=== PATIENT | male | born 1965 | race Hispanic/Latino ===

== ENCOUNTER 2018-11-26 14:06 | Observation (INO) | payer OTHER ==
[~2018-11-26] VITALS: Ht 182.9 cm; Wt 123.8 kg
[2018-11-26] MEDS ORDERED: METOPROLOL TARTRATE INJ 1 MG/ML VIAL ONE ×2 (14:28→14:37)
[2018-11-26] MEDS ORDERED: METOPROLOL TARTRATE INJ 1 MG/ML VIAL IV ONE ×3 (15:00→15:45)
[2018-11-26] MEDS ORDERED: DILTIAZEM HCL 125 ML IV SCH (15:15)
[2018-11-26] MEDS ORDERED: ENOXAPARIN SODIUM INJ 100 MG/ML SYR SC SCH (15:15)
[2018-11-26] MEDS ORDERED: SODIUM CHLORIDE 0.9% 1000ML 1,000 ML ONE (15:25)
[2018-11-26] MEDS ORDERED: DILTIAZEM HCL VIAL 5 ML ONE (15:25)
[2018-11-26] MEDS ORDERED: DILTIAZEM HCL 5 MG/ML 5 ML VIAL IV STA ×2 (15:30→17:39)
[2018-11-26] MEDS ORDERED: MAGNESIUM/ALUMINUM/SIMETHICONE 30 ML UDC ONE (15:57)
[2018-11-26] MEDS ORDERED: SODIUM CHLORIDE 0.9% 500ML 500 ML IV ONE (16:00)
[2018-11-26] MEDS ORDERED: MAGNESIUM/ALUMINUM/SIMETHICONE 30 ML UDC PO ONE (16:00)
--- NOTE | 2018-11-26 16:29 | Diagnostic Imaging Report ---
EXAMINATION: CXR 1 VEW - HOPD INDICATION: Palpitations COMPARISON: None FINDINGS: LINES/TUBES:EKG leads overlie the chest. LUNGS:The lungs are well-inflated. No focal consolidation or pulmonary edema. PLEURA:No pleural effusion or pneumothorax. MEDIASTINUM:Heart size at the upper limits of normal. BONES/SOFT TISSUES:No acute osseous injury. ABDOMEN:No free air under the diaphragm. IMPRESSION: No focal pneumonia or pulmonary edema. Signed by: Kianna Valerio MD on 11/26/2018 4:25 PM
[2018-11-26] MEDS ORDERED: METOPROLOL TARTRATE 50 MG TAB ONE (16:40)
[2018-11-26] MEDS ORDERED: METOPROLOL TARTRATE 25 MG TAB PO ONE (16:45)
[2018-11-26] MEDS ORDERED: ONDANSETRON HCL INJ 2MG/ML 2ML 2 MG/ML VIAL IV PRN (17:00)
[2018-11-26] MEDS ORDERED: ASPIRIN 81 MG CHEW TAB PO ONE (17:00)
--- OUTSIDE RECORDS SUMMARY | 2018-11-26 17:11 | XMS REPORT ---
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 Allergies, Adverse Reactions, Alerts This patient has no known allergies or adverse reactions. Medications This patient has no known medications. Results Test Description Test Time Test Comments Text Results Atomic Results Result Comments CXR 1 [facility] 2018-11-26 16:24:00 [place] [address] Patient Name: TOPHER BLAS MR #: [id number] : 1965 Age/Sex: 53/M Req #: [id number] Adm Physician: Ordered by: LUZ MARINA VAUGHN MD Report #: [id number] Location: [facility] Room/Bed: Procedure: [id number] HOPD/CXR 1 [facility] Exam Date: 11/26/18 Exam Time: 1612 REPORT STATUS: Signed EXAMINATION: CXR 1 [facility] INDICATION: Pa lpitations COMPARISON: None FINDINGS: LINES/TUBES:EKG leads overlie the chest. LUNGS:The lungs are well-inflated. No focal consolidation or pulmonary edema. PLEURA:No pleural effusion or pneumothorax. MEDIASTINUM:Heart size at the upper limits of normal. BONES/SOFT TISSUES:No acute osseous injury. ABDOMEN:No free air under the diaphragm. IMPRESSION: No focal pneumonia or pulmonary edema. Signed by: Aldo Valerio MD on 11/26/2018 4:25 PM Dictated By: ALDO VALERIO MD [id number] Transcribed By: TEVIN on 11/26/18 1043 COPY TO: LUZ MARINA VAUGHN MD
--- NOTE | 2018-11-26 17:23 | NUR ---
PT RESTING, VITAL SIGNS STABLE PT AND FAMILY AWARE OF POC TO TRANSFER TO [facility], PT VOICES NO COMPLAINTS AT THIS TIME.
--- NOTE | 2018-11-26 17:25 | NUR ---
[facility] CALLED FOR TRANSPORT ETA 45 MINUTES
--- NOTE | 2018-11-26 18:22 | NUR ---
PT TRANSFERRED TO MAIN REPORT TO [facility] ALL QUESTIONS ANSWERED
--- NOTE | 2018-11-26 18:25 | NUR ---
PT TO THE FLOOR, VITALS WNL, PT DENUIES NEEDS AT THIS TIME.
[2018-11-26 18:35] VITALS: BP 117/90
[2018-11-26 20:37] VITALS: BP 123/90
[2018-11-26 20:37] LABS: CREATINE KINASE MB 0.8 ng/mL (0-5.0)
[2018-11-26 21:00] VITALS: BP 123/90
[2018-11-26 22:38] VITALS: BP 123/90
[2018-11-27 00:09] VITALS: BP 118/91
[2018-11-27] MEDS ORDERED: APIXABAN 5 MG TABLET PO SCH (03:00)
[2018-11-27 03:18] LABS: CREATINE KINASE MB 0.8 ng/mL (0-5.0)
[2018-11-27 04:33] VITALS: BP 129/81
[2018-11-27 05:42] LABS: BASOPHILS % 0.4 % (0.0-1.0); EOSINOPHILS # (AUTO) 0.3 (0.0-0.4); EOSINOPHILS % 3.6 % (0.0-6.0); HEMATOCRIT 46.3 % (38.2-49.6); HEMOGLOBIN 14.7 g/dL (14.0-18.0); LYMPHOCYTES # (AUTO) 1.9 (1.0-3.2); MEAN CORPUSCULAR HEMOGLOBIN 27.4 pg (28-32); MEAN CORPUSCULAR HGB CONC 31.7 g/dL (31-35); MEAN CORPUSCULAR VOLUME 86.2 fL (81-99); MONOCYTES # (AUTO) 0.7 (0.2-0.8); MONOCYTES % 8.6 % (4.4-11.3); NEUTROPHILS # (AUTO) 5.2 (2.1-6.9); PLATELET COUNT 252 x10e3/uL (140-360); RED BLOOD COUNT 5.37 x10e6/uL (4.3-5.7); RED CELL DISTRIBUTION WIDTH 13.7 % (11.7-14.4)
[2018-11-27 06:06] LABS: BLOOD UREA NITROGEN 14 mg/dL (7-26); BUN/CREATININE RATIO 17 (6-25); CALCIUM 8.8 mg/dL (8.4-10.2); CARBON DIOXIDE 21 mmol/L (22-29); CHLORIDE 106 mmol/L (98-107); CREATININE, SERUM 0.81 mg/dL (0.72-1.25); EST GLOMERULAR FILTRATION RATE > 60 ML/MIN (60-); GLUCOSE 103 mg/dL (74-118); MAGNESIUM 2.2 MG/DL (1.3-2.1); SODIUM 136 mmol/L (136-145)
[2018-11-27 06:10] LABS: CREATINE KINASE MB 0.8 ng/mL (0-5.0)
--- NOTE | 2018-11-27 06:28 | NUR ---
Patient HR above [address] Kajal MD ordered po metoprolol 25mg once and ordered to consult with Meryl riggs at his time.
--- NOTE | 2018-11-27 06:40 | NUR ---
Called Dr. Meryl riggs. Notified about his consult and patient's condition. MD ordered IV digoxin 0.5mg once at this time.
[2018-11-27] MEDS ORDERED: METOPROLOL TARTRATE 25 MG TAB PO ONE (06:45)
[2018-11-27] MEDS ORDERED: DIGOXIN INJ 0.25 MG/ML 2 ML AMP IV ONE (07:00)
[2018-11-27 07:23] VITALS: BP 148/99
--- NOTE | 2018-11-27 07:31 | NUR ---
Report given to oncoming nurse,walking round done.
[2018-11-27] MEDS ORDERED: METOPROLOL TARTRATE 25 MG TAB PO SCH ×2 (09:00→17:00)
[2018-11-27 09:26] VITALS: BP 148/99
--- NOTE | 2018-11-27 09:31 | NUR ---
PATIENT ON TELEMETRY NUMBER ONE, PATIENT'S TELEMETRY UNIT IS READING AFIB WITH RVR, RATE 140s-170s, CALLED DR. DUFF'S OFFICE FOR ORDERS.
[2018-11-27] MEDS ORDERED: METOPROLOL TARTRATE INJ 1 MG/ML VIAL IV ONE (10:00)
[2018-11-27 11:08] LABS: ALANINE AMINOTRANSFERASE 26 IU/L (0-55); ALBUMIN 3.4 g/dL (3.5-5.0); ALBUMIN/GLOBULIN RATIO 1.4 (0.8-2.0); ALKALINE PHOSPHATASE 40 IU/L (40-150); ANION GAP 19.2 mmol/L (8-16); BLOOD UREA NITROGEN 14 mg/dL (7-26); BUN/CREATININE RATIO 17 (6-25); CARBON DIOXIDE 16 mmol/L (22-29); CHLORIDE 106 mmol/L (98-107); CREATININE, SERUM 0.83 mg/dL (0.72-1.25); EST GLOMERULAR FILTRATION RATE > 60 ML/MIN (60-); GLUCOSE 95 mg/dL (74-118); POTASSIUM 4.2 mmol/L (3.5-5.1); SODIUM 137 mmol/L (136-145)
[2018-11-27] MEDS ORDERED: AMIODARONE HCL 200 MG TAB PO SCH (11:15)
[2018-11-27 11:23] VITALS: BP 134/93
[2018-11-27 11:31] LABS: CHOL/HDL RATIO 3.9 (3.9-4.7)
[2018-11-27] MEDS ORDERED: AMIODARONE HCL200 MG PO (11:57)
[2018-11-27] MEDS ORDERED: METOPROLOL TART50 MG PO (12:01)
[2018-11-27] MEDS ORDERED: XARELTO20 MG PO (12:01)
--- NOTE | 2018-11-27 12:45 | History and Physical ---
PRIMARY CARE PHYSICIAN: . EMBALMER APPRENTICE: Dr. Meryl Jaen. CHIEF COMPLAINT: Palpitation, new onset atrial fibrillation with rapid ventricular rate response. HISTORY OF PRESENT ILLNESS: This is a 53-year-old male with no significant medical history. Has some palpitations from time to time, started about may be a month ago, did not think anything of it because he went to see his escrow manager, Dr. Koroma; basically, there was no finding of any arrhythmia. The patient, however, is having other symptoms, heart rate was very rapid, went to outpatient emergency room, basically found to have atrial fibrillation with rapid ventricular rate response. Heart rate in the 130 and 150. Beta-randolph was given. The patient seemed to be improving, but then had another episode. The patient is now admitted for further evaluation and treatment. Dr. Meryl Jean is consulted. PAST MEDICAL HISTORY: Noncontributory. PAST SURGICAL HISTORY: Noncontributory. SOCIAL HISTORY: The patient does not smoke or use alcohol. No regular drugs. ALLERGIES: NO KNOWN ALLERGIES. HOME MEDICATIONS: Not available. PHYSICAL EXAMINATION: VITAL SIGNS: Temperature is 98, blood pressure is 140/99, pulse rate is , respirations 18. GENERAL: The patient is not in acute distress. HEENT: Normocephalic, atraumatic. Pupils reactive. Anicteric. NECK: Supple grossly. PULMONARY: Diminished breath sounds. CARDIOVASCULAR: Atrial fibrillation with episodic rapid rate. ABDOMEN: Soft, nontender, non-distention. EXTREMITIES: No cyanosis or edema. NEUROLOGIC: No gross focal deficit. LABORATORY: Hemoglobin 14.7, hematocrit 46, platelets 252. Chemistry; sodium is 136, potassium 4, chloride 106, bicarb 21, BUN 14, creatinine 0.8, glucose is 103. Cardiac enzyme is negative. Chest x-ray is otherwise unremarkable. IMPRESSION: Atrial fibrillation with rapid ventricular rate response. This is a new onset. PLAN: Consultation with Dr. Meryl Jean. The patient may need amiodarone, but await for Dr. Jean to see the patient. Continue with beta-randolph. Continue with Eliquis. We will monitor the patient closely. MD NETTA Eddy/EVARISTO /[id number]
--- NOTE | 2018-11-27 14:05 | NUR ---
PATIENT'S CARDIAC TELEMETRY UNIT IS REPORTING THAT PATIENT'S HEART RATE IS 150s-170s AFIB WITH RVR, CALLED [facility]SWERING [facility], SPOKE WITH YAMILE, MINERVA STATED THAT SHE WILL TELL THE PHYSICIAN OR MANAGER FILTER.
[2018-11-27] MEDS ORDERED: AMIODARONE HCL 150 MG/100 ML BAG IV ONE (14:30)
[2018-11-27] MEDS ORDERED: AMIODARONE HCL 150 MG in DEXTROSE 5% 100ML 100 ML IV ONE (14:45)
--- NOTE | 2018-11-27 14:45 | NUR ---
Received patient from observation unit patient is alert and oriented x3, independent verbalizing needs, administered amiodarone loading dose, per orders, once completed will administer amiodarone drip per orders. Patient is Atrial fibrillation, heart rate range between 100-115 will continue to monitor.
[2018-11-27] MEDS: SODIUM CHLORIDE FLUSH 10 ML SYR INJ PRN (14:55)
[2018-11-27] MEDS ORDERED: AMIODARONE HCL 900 MG in DEXTROSE 5% 500ML 500 ML IV SCH (15:00)
--- NOTE | 2018-11-27 17:05 | Consultation ---
DATE OF CONSULTATION: 11/27/2018 REASON FOR CONSULTATION: Atrial fibrillation, RVR. CHIEF COMPLAINT: Palpitations. HISTORY OF PRESENT ILLNESS: This is a 53-year-old male with history of hypertension and hyperlipidemia. The patient presents to [facility] ER with complaints of palpitations and some dizziness, and shortness of breath. The patient was noted in atrial fibrillation with RVR, was given diltiazem and metoprolol. Cardiology was consulted to evaluate the patient. The patient was evaluated and seen with family at bedside. The patient reports that he started having some palpitations, irregular heart beat on Sunday evening after dinner. The symptoms progressed. However, on Sunday afternoon, he decided to come to the hospital for further evaluation. As stated before, the patient was noted in atrial fibrillation with RVR. After long discussion with the patient, the patient reports that this has been ongoing for several months intermittently. However, at this time, the palpitations continues and therefore, came to the hospital for further evaluation. Of note, the patient reports he was seen by Dr. Zamora in [place] because of these palpitations, however, the patient reports that he had a stress test and an echo, he was told that everything was fine. The patient denies any chest pains, any shortness of breath at this time. Tele noted the patient is in atrial fibrillation with heart rates in the 110s. PAST MEDICAL HISTORY: Hypertension, hyperlipidemia, paroxysmal atrial fibrillation by history. PAST SURGICAL HISTORY: Right and left knee surgery. SOCIAL HISTORY: He is . 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 He denies any tobacco use and he socially drinks alcohol. FAMILY HISTORY: Mother is alive and reports of osteoarthritis. The father at the age of 69, apparently from myocardial infarction. HOME MEDICATIONS: Include: 1. Amlodipine 5 mg once a day. 2. Crestor 10 mg daily. 3. Tadalafil as needed. ALLERGIES: NO KNOWN ALLERGIES. REVIEW OF SYSTEMS: GENERAL: Denies any weight changes, fatigue, weakness, fevers, chills, or night sweats. SKIN: No rashes or bruises reported. HEENT: Denies any nausea, vomiting, vision changes, blurred vision, double vision, epistaxis, swollen neck, sore throat, or hoarseness. CARDIAC: Denies any chest pains. Positive for palpitations and dizziness. Denies any orthopnea, PND, lower extremity edema. RESPIRATORY: Denies any shortness of breath, any wheezing, coughing, or hemoptysis. GASTROINTESTINAL: Reports good appetite. Denies any nausea, vomiting, diarrhea, constipation, melena, or hematochezia. URINARY: Denies any frequency, urgency, dysuria, or hematuria. VASCULAR: Denies any lower extremity edema or claudication. MUSCULOSKELETAL: Denies any muscle weakness. Positive for generalized joint pains, specifically his knees. NEUROLOGIC: Denies any tremors, weakness, paralysis, fainting, blackouts, or seizures. HEMATOLOGY: Denies any bruising or bleeding issues. ENDOCRINE: Denies any heat or cold intolerance, polyuria, polydipsia, or polyphagia. PHYSICAL EXAMINATION: VITAL SIGNS: Height 72 inches, weight 270 pounds, temperature 97.4, pulse 115, respiratory rate 20, blood pressure 140/90, pulse ox 97% on room air. GENERAL: Appears stated age, reliable informant, in no acute distress. SKIN: No rashes or bruises noted. HEENT: Normocephalic. Pupils are equal and reactive. Extraocular movements intact. Trachea midline. No JVD. Oral mucosa pink. HEART: Irregular rate and rhythm. No murmurs noted. PMI in both 4th and 5th intercostal space. LUNGS: Bilateral breath sounds clear to auscultation. Good airway entry and exit. ABDOMEN: Soft, nontender, and nondistended. No organomegaly noted. MUSCULOSKELETAL: Good muscle strength throughout. No lower extremity edema noted. VASCULAR: +2 bilateral radial pulses, +2 DP and PT pulses bilaterally. NEUROLOGIC: Cranial nerves II through XII seem intact. LABORATORY DATA: Sodium 136, potassium 4.0, chloride 106, BUN 14, creatinine 0.8, glucose 103. Troponin 0.01, 0.004, and 0.002. TSH is pending. White count 8, hemoglobin 14, hematocrit 46, platelets 252. Chest x-ray, no acute abnormalities. No pulmonary edema. EKG, atrial fibrillation, RVR with initial heart rate 178. ASSESSMENT: 1. Atrial fibrillation, rapid ventricular response. 2. Hypertension. 3. Hyperlipidemia. PLAN: 1. The patient presents with atrial fibrillation with RVR, appears to be paroxysmal by history. 2. We will place the patient on beta-randolph therapy for rate control. Also, we will go ahead and place the patient on amiodarone for rhythm control. 3. The patient has been started on Eliquis therapy. Risks and benefits discussed with the patient. 4. We will get an echo to evaluate heart function and structure. 5. We will go ahead and consult EP for possible atrial fibrillation ablation. However, EP evaluation can be done as an outpatient. I had a long discussion with the patient and regarding treatment options. 6. We will continue to follow the patient and adjust cardiac therapy as clinical course dictates. Thank you very much for this consult. SEEN AND EXAMINED AGREE WITH NOTE Dictated by Kervin Tavarez, GIOVANNI Elmer Jean MD DC/EVARISTO /[id number] MTDD
[2018-11-27] MEDS: RIVAROXABAN 20 MG TABLET PO SCH (18:25)
[2018-11-27] MEDS: METOPROLOL TARTRATE 50 MG TAB PO SCH (18:28)
[2018-11-27 20:04] VITALS: BP 126/93
[2018-11-27] MEDS ORDERED: AMIODARONE 900MG 500 ML IV SCH (21:01)
[2018-11-28] VITALS (7 sets, daily range): BP systolic 111–137; BP diastolic 88–103
[2018-11-28] MEDS: METOPROLOL TARTRATE 50 MG TAB PO SCH ×2 (09:33→16:26)
[2018-11-28] MEDS ORDERED: METOPROLOL TARTRATE 50 MG TAB PO NR (11:00)
[2018-11-28] MEDS: SODIUM CHLORIDE FLUSH 10 ML SYR INJ PRN (16:13)
[2018-11-28] MEDS ORDERED: AMIODARONE HCL 200 MG TAB PO SCH (16:14)
[2018-11-28] MEDS: RIVAROXABAN 20 MG TABLET PO SCH (16:26)
--- NOTE | 2018-11-28 17:59 | NUR ---
Patient discharged home verbalized understanding of discharge instructions. Patient also instructed by cardiology to resume his Norvasc, and his statin medication at home. Prescriptions given to patient and his along with medication education handouts. IC access discontinued prior to discharge. Escorted patient via wheel chair to meet his in front of hospital.
[2018-11-29] MEDS ORDERED: AMIODARONE HCL 200 MG TAB PO SCH (09:00)
== END 2018-11-28 17:59 | disposition home or self-care (01) ==
LOC: FSED 14:06 → ERHOLD 17:06 → IMCU 18:20
PROVIDERS: ADMIT Internal Medicine; ATTEND Internal Medicine
DX: I48.91 Unspecified atrial fibrillation (principal); R00.2 Palpitations; I10 Essential (primary) hypertension; E78.5 Hyperlipidemia, unspecified; Z82.49 Family history of ischemic heart disease and other diseases of the circulatory system; Z79.899 Other long term (current) drug therapy
CPT/HCPCS: 36415 ×2; 71045; 80048; 80053 ×2; 80061; 81003; 82550 ×2; 82553 ×2; 83735; 83880; 84443; 84484 ×2; 85025 ×2; 85379; 85610; 93005 ×2; 93306; 99284; G0378 ×3; J0282 ×2; J1160; J1650; J7030; J7040; J7060; J2405

== ENCOUNTER → 2021-03-25 | Day surgery (SDC) | payer OTHER ==
[2021-03-23 14:49] LABS: BASOPHILS % 0.5 % (0.0-1.0); EOSINOPHILS # (AUTO) 0.2 (0.0-0.4); EOSINOPHILS % 3.1 % (0.0-6.0); HEMATOCRIT 43.7 % (38.2-49.6); HEMOGLOBIN 14.9 g/dL (14.0-18.0); LYMPHOCYTES # (AUTO) 1.3 (1.0-3.2); LYMPHOCYTES % 22.9 % (18.0-39.1); MEAN CORPUSCULAR HEMOGLOBIN 29.8 pg (28-32); MEAN CORPUSCULAR HGB CONC 34.1 g/dL (31-35); MEAN CORPUSCULAR VOLUME 87.4 fL (81-99); MONOCYTES # (AUTO) 0.5 (0.2-0.8); MONOCYTES % 8.5 % (4.4-11.3); NEUTROPHILS # (AUTO) 3.7 (2.1-6.9); NEUTROPHILS % 64.7 % (38.7-80.0); PLATELET COUNT 243 x10e3/uL (140-360); RED CELL DISTRIBUTION WIDTH 12.5 % (11.7-14.4)
[2021-03-23 15:07] LABS: ALBUMIN 3.8 g/dL (3.5-5.0); ALBUMIN/GLOBULIN RATIO 1.3 (0.8-2.0); ANION GAP 12.9 mmol/L (8-16); CALCIUM 8.3 mg/dL (8.4-10.2); CREATININE, SERUM 0.82 mg/dL (0.72-1.25); POTASSIUM 3.9 mmol/L (3.5-5.1)
[~2021-03-25] MED LIST: AMIODARONE HCL200 MG PO; AMLODIPINE BESYL5 MG PO; ASPIRIN81 MG PO; BUPIVACAINE 0.25% 30ML SDV ONE; CRESTOR10 MG PO; DEXAMETHASONE SOD PHOS INJ 4 MG/ML SDV ONE; FAMOTIDINE 20 MG/2 ML VIAL IV ONE; FENTANYL CITRATE/PF 100MCG/2 ML INJ ONE; LIDOCAINE HCL 2% LOCAL INJ 5 ML SDV VIAL INJ ONE; METOPROLOL TART50 MG PO; ONDANSETRON HCL INJ 2MG/ML 2ML 2 MG/ML VIAL ONE; POVIDONE IODINE 0.05% 0.05 % ML PO ONE; PROPOFOL IV EMULSION 10 MG/ML 20 ML VIAL ONE; SEVOFLURANE INHAL SOLN 250 ML PEN BTL ONE; XARELTO20 MG PO
[2021-03-25 10:40] VITALS: BP 111/74
== END | disposition home or self-care (01) ==
LOC: OR 06:58
PROVIDERS: ATTEND Surgery
DX: M62.89 Other specified disorders of muscle (principal); G47.33 Obstructive sleep apnea (adult) (pediatric); I10 Essential (primary) hypertension; Z01.810 Encounter for preprocedural cardiovascular examination; Z01.812 Encounter for preprocedural laboratory examination; Z20.822 Contact with and (suspected) exposure to COVID-19; Z79.82 Long term (current) use of aspirin; Z79.899 Other long term (current) drug therapy; Z68.37 Body mass index [BMI] 37.0-37.9, adult
CPT/HCPCS: 21933; 36415; 80053; 85025; 88304; 93005; J1100; J2001; J2405; J2704; J3010; U0002